=== PATIENT | male | born 1995 | race Caucasian/White ===

== ENCOUNTER 2022-01-28 23:15 | Emergency (ER) | payer SELFPAY ==
[~2022-01-28] VITALS: Ht 167.6 cm; Wt 57.7 kg
[2022-01-29 04:10] LABS: BASOPHILS % 0.7 % (0.0-2.0); EOSINOPHILS % 5.2 % (0.0-5.0); HEMATOCRIT. 40.1 % (42.0-52.0); HEMOGLOBIN. 13.6 g/dL (14.0-18.0); LYMPHOCYTES % 20.6 % (20.0-50.0); MEAN CORPUSCULAR HEMOGLOBIN 27.9 pg (28.0-32.0); MEAN CORPUSCULAR VOLUME 82.4 fL (80.0-94.0); MEAN PLATELET VOLUME 7.1 fl (7.4-10.4); MONOCYTES % 9.2 % (2.0-8.0); NEUTROPHILS % 64.3 % (40.0-76.0); PLATELET 273 x1000/uL (130-400); RED BLOOD CELL COUNT 4.86 mill/uL (4.7-6.1); RED CELL DISTRIBUTION WIDTH 14.5 % (11.6-14.6)
[2022-01-29 04:14] LABS: CLARITY URINE CLEAR (CLEAR); COLOR URINE YELLOW (YELLOW); KETONES URINE NEGATIVE (NEGATIVE); LEUKOCYTE ESTERASE URINE NEGATIVE (NEGATIVE); NITRITE URINE NEGATIVE (NEGATIVE); OCCULT BLOOD URINE TRACE (NEGATIVE); PH URINE 6.5 (4.5-8.0); PROTEIN URINE NEGATIVE (NEGATIVE); SPECIFIC GRAVITY URINE 1.024 (1.005-1.030)
[2022-01-29 04:20] LABS: CHLORIDE 103 mEq/L (98-107)
[2022-01-29] MEDS ORDERED: HYDR-4001 MT (04:58)
[2022-01-29] MEDS ORDERED: CEPH500C2 MT (04:58)
[2022-01-29] MEDS ORDERED: CEFTRIAXONE SODIUM 500 MG/VIAL IM ONE (05:00)
[2022-01-29 05:21] VITALS: BP 124/78
[2022-01-31 04:10] LABS: NEISSERIA GONORRHOEAE NAA Negative (Negative)
== END 2022-01-29 05:25 | disposition home or self-care (01) ==
LOC: ER 23:15
DX: L73.9 Follicular disorder, unspecified (principal); N49.2 Inflammatory disorders of scrotum; N43.3 Hydrocele, unspecified
CPT/HCPCS: 36415; 76870; 80048; 81003; 85025; 87491; 87591; 93976; 96372; 99284; J0696